=== PATIENT | female | born 1980 | race Caucasian/White ===

== ENCOUNTER 2016-09-28 04:17 | Inpatient (IN) | payer OTHER ==
[~2016-09-28] VITALS: Ht 157.5 cm; Wt 114.3 kg
[2016-09-28] VITALS (7 sets, daily range): BP systolic 127–154; BP diastolic 77–101
[~2016-09-28 04:17] MED LIST: ACET1TAB PO; ASCO500V4 IJ; CYCL-331 PO; DICL1PAT14 TD; DIPH25CA58 PO; FERR-26 PO; GABA-586 PO; LORA0.5T PO; MAGN400T3 PO; METO10TA81 PO; MULT1TAB52 PO; NAPR500T3 PO; PROM25TA10 PO; PROP10TA PO; PROP40TA PO; PROP60CA8 PO; TRAM50TA PO
--- NOTE | 2016-09-28 04:24 | PHYS DOC ---
Past History Past Medical History: Migraines, Seizure, Other Past Surgical History: Hysterectomy, Other Alcohol Use: None Drug Use: None Adult General Chief Complaint Chief Complaint: NAUSEA/VOMITING/DIARRHEA HPI HPI Patient is a 36 year old F who presents with nausea and vomiting 3 days. Patient called and wants us morning because her symptoms have progressed over the past 3 days and she is unable to keep anything down. Patient states she's a stream discomfort. Patient describes some generalized abdominal tenderness. Patient did have subjective fevers. Patient denies any chest pain returns of breath. Patient denies any dysuria. Patient has no other complaints. Review of Systems Review of Systems GEN: Denies fevers, chills, sweats HEENT: Denies blurred vision, sore throat CV: Denies chest pain RESP: Denies shortness of air, cough GI: Abdominal pain with nausea and vomiting NEURO: Denies confusion, dizziness MSK: Denies weakness, joint pain/swelling Allergies Allergies Allergies Coded Allergies Type Severity Reaction Last Updated Verified hydrocodone Allergy Unknown 01/23/15 Yes ibuprofen Allergy Unknown 01/23/15 Yes iron Allergy Unknown 06/08/15 Yes latex Allergy Unknown 01/23/15 Yes Physical Exam Physical Exam GEN.: Moderate distress. Alert and oriented. HEENT: Head is normocephalic, atraumatic NECK: Supple. LUNGS: CTAB. HEART: RRR, S1, S2 present. Peripheral pulses intact ABDOMEN: Soft, mild generalized abdominal tenderness, nondistended, no focal point tenderness, no rebound no guarding. Positive bowel sounds. EXTREMITIES: Without any cyanosis. NEUROLOGIC: Normal speech, normal tone PSYCHIATRIC: Normal affect, normal mood. SKIN: No ulcerations Current Patient Data Vital Signs Vital Signs Date Time Temp Pulse Resp B/P (MAP) Pulse Ox O2 Delivery O2 Flow Rate FiO2 09/28/16 04:17 97.6 117 20 97 Room Air Lab Results Laboratory Tests Test 09/28/16 04:36 09/28/16 05:00 09/28/16 06:01 Glucose (Fingerstick) 132 mg/dL White Blood Count 14.1 x10^3/uL Red Blood Count 4.93 x10^6/uL Hemoglobin 13.8 g/dL Hematocrit 40.6 % Mean Corpuscular Volume 82 fL Mean Corpuscular Hemoglobin 28 pg Mean Corpuscular Hemoglobin Concent 34 g/dL Red Cell Distribution Width 14.3 % Platelet Count 315 x10^3/uL Neutrophils (%) (Auto) 72 % Lymphocytes (%) (Auto) 21 % Monocytes (%) (Auto) 5 % Eosinophils (%) (Auto) 1 % Basophils (%) (Auto) 1 % Neutrophils # (Auto) 10.1 x10^3uL Lymphocytes # (Auto) 2.9 x10^3/uL Monocytes # (Auto) 0.8 x10^3/uL Eosinophils # (Auto) 0.1 x10^3/uL Basophils # (Auto) 0.1 x10^3/uL Segmented Neutrophils % 63 % Lymphocytes % 34 % Monocytes % 2 % Basophils % 1 % Platelet Estimate Adequate Platelet Clumps, EDTA Present Large Platelets Occ Giant Platelets Occ Anisocytosis Slight Ovalocytes Occ Stomatocytes Occ Sodium Level 140 mmol/L Potassium Level 3.5 mmol/L Chloride Level 104 mmol/L Carbon Dioxide Level 22 mmol/L Anion Gap 14 Blood Urea Nitrogen 10 mg/dL Creatinine 0.9 mg/dL Estimated GFR (Cockcroft-Gault) 70.8 BUN/Creatinine Ratio 11 Glucose Level 127 mg/dL Calcium Level 9.9 mg/dL Total Bilirubin 0.4 mg/dL Aspartate Amino Transf (AST/SGOT) 20 U/L Alanine Aminotransferase (ALT/SGPT) 22 U/L Alkaline Phosphatase 118 U/L Total Protein 8.5 g/dL Albumin 3.9 g/dL Albumin/Globulin Ratio 0.8 Lipase 106 U/L Urine Collection Type Unknown Urine Color Yellow Urine Clarity Hazy Urine pH >8.5 Urine Specific [place] 1.010 Urine Protein Trace Urine Glucose (UA) Neg mg/dL Urine Ketones (Stick) 15 mg/dL Urine Blood Neg Urine Nitrite Neg Urine Bilirubin Neg Urine Urobilinogen Dipstick 1 mg/dL Urine Leukocyte Esterase Small Urine RBC 0 /HPF Urine WBC Occ /HPF Urine Squamous Epithelial Cells Few /LPF Urine Bacteria Few /HPF Urine Mucus Slight /LPF Current Medications Medications (Trade) Dose Ordered Sig/Leanna Route PRN Reason Start Time Stop Time Status Last Admin Dose Admin Metoclopramide HCl (Reglan) 10 mg 1X ONCE IV 09/28/16 05:00 09/28/16 05:01 DC 09/28/16 05:00 Sodium Chloride 1,000 ml @ 1,000 mls/hr 1X ONCE IV 09/28/16 05:00 09/28/16 05:59 DC 09/28/16 05:00 Iohexol (Omnipaque 300 Mg/ml) 75 ml 1X ONCE IV 09/28/16 05:00 09/28/16 05:01 DC 09/28/16 05:35 Info (Do NOT chart on this entry -- for MONITORING) 1 each PRN DAILY PRN MC SEE COMMENTS 09/28/16 05:00 09/30/16 04:59 Promethazine HCl (Phenergan Im) 25 mg 1X ONCE IM 09/28/16 07:00 09/28/16 07:02 DC 09/28/16 06:53 EKG EKG Not performed [] Radiology/Procedures Radiology/[place] [address] IMAGING REPORT Signed PATIENT: SHITAL WASHBURN ACCOUNT: [id number] : 1980 LOCATION: ER AGE: 36 SEX: F EXAM STATUS: REG ER ORD. PHYSICIAN: RADHA GARCIA DO REASON: nausea and vomiting with abdominal pain PROCEDURE: CT ABD PELV W/ IV CONTRST ONLY INDICATION: [id number] Omni 300 75cc: Dizzy, fever, weakness, abdomen tenderness x 3 days. Hx: Right knee surgery 3 weeks ago. COMPARISON: None. TECHNIQUE: Axial CT images were obtained through the abdomen and pelvis with intravenous contrast. One or more of the following individualized dose reduction techniques were utilized for this examination: 1. Automated exposure control; 2. Adjustment of the mA and/or kV according to patient size; 3. Use of iterative reconstruction technique. FINDINGS: Abdomen: Chest Base: Partially imaged without gross abnormality. Vessels: No abdominal aortic aneurysm. Liver/Biliary: No intrahepatic biliary duct dilation. Pancreas: No peripancreatic edema. Spleen: Normal. Kidneys/Adrenal: No hydronephrosis. GI: Moderate fat-containing umbilical hernia. No dilated loops of bowel to suggest obstruction. Appendix not well seen. Pelvis: Bladder: No definite adjacent inflammation. Degenerative changes of spine. IMPRESSION: 1. Patient motion limits this examination and obscures some regions but no evidence of hydronephrosis or bowel obstruction. Electronically signed by: Aidan Odonnell MD (09/28/2016 6:06 AM) [email or web address] DICTATED AND SIGNED BY: AIDAN ODONNELL MD DATE: 09/28/16 0559 CC: SYEDA RODAS; RADHA GARCIA DO ~ [] Course & Med Decision Making Course & Med Decision Making Pertinent Labs and Imaging studies reviewed. (See chart for details) ED course: Patient was seen and examined emergency room CBC, CMP, lipase, UA, CT scan abdomen and pelvis were ordered 0600: Care has been transitioned to Dr. Daly who will follow-up on [labs], [ radiology], and final disposition of the patient. I took over care of patient at 0600. I followed up with the patient's CT imaging which was negative for acute pathology. The patient had been treated with Reglan by Dr. Garcia which patient states not help with her nausea symptoms. Patient was treated with Phenergan IM, however patient states that she continues to be nauseous. Patient attempted by mouth intake with oral fluids , and after drinking a few ounces, the patient states that she is unable to drink anymore and is feeling worsening nausea at this time. The patient's symptoms are likely due to viral gastroenteritis, and due to lack of by mouth intake and dizziness, the patient will need admission to the hospital for continued IV hydration and symptomatic control. I spoke with Dr. Navarro who accepted care patient in hospital. [] Dragon Disclaimer Dragon Disclaimer This chart was dictated in whole or in part using Voice Recognition software in a busy, high-work load, and often noisy Emergency Department environment. It may contain unintended and wholly unrecognized errors or omissions. Departure Departure: Impression: Primary Impression: Nausea and vomiting Disposition: ADMITTED INPATIENT Admitting Physician: Trish Navarro Condition: STABLE Referrals: SYEDA RODAS (PCP) Problem Qualifiers Primary Impression: Nausea and vomiting Vomiting type: unspecified Vomiting Intractability: intractable Qualified Codes: R11.2 - Nausea with vomiting, unspecified RADHA GARCIA DO Sep 28, 2016 04:24 WENDY DALY MD Sep 28, 2016 08:06
[2016-09-28] MEDS ORDERED: CONTRAST GIVEN MC PRN (05:00)
[2016-09-28] MEDS ORDERED: IV NORMAL SALINE 1,000ML 1,000 ML IV ONE (05:00)
[2016-09-28] MEDS ORDERED: IOHEXOL 300 MG/ML 75 ML VIAL. IV ONE (05:00)
[2016-09-28] MEDS ORDERED: METOCLOPRAMIDE HCL 10 MG/2 ML VIAL. IV ONE (05:00)
[2016-09-28 05:37] LABS: ALBUMIN 3.9 g/dL (3.4-5.0); ALBUMIN/GLOBULIN RATIO 0.8 (1.0-1.7); BASO # 0.1 x10^3/uL (0.0-0.2); BASO % 1 % (0-3); CALCIUM 9.9 mg/dL (8.5-10.1); CREATININE 0.9 mg/dL (0.6-1.0); EOS # 0.1 x10^3/uL (0.0-0.7); EOS % 1 % (0-3); GFR 70.8; HEMATOCRIT 40.6 % (36.0-47.0); HEMOGLOBIN 13.8 g/dL (12.0-15.5); LYMPH # 2.9 x10^3/uL (1.0-4.8); LYMPH % 21 % (24-48); MEAN CORPUSCULAR HEMOGLOBIN 28 pg (25-35); MEAN CORPUSCULAR HGB CONC 34 g/dL (31-37); MEAN CORPUSCULAR VOLUME 82 fL (79-100); MONO # 0.8 x10^3/uL (0.0-1.1); MONO % 5 % (0-9); NEUT # 10.1 x10^3uL (1.8-7.7); NEUT % 72 % (31-73); PLATELET COUNT 315 x10^3/uL (140-400); POTASSIUM 3.5 mmol/L (3.5-5.1); RED BLOOD COUNT 4.93 x10^6/uL (3.50-5.40); RED CELL DISTRIBUTION WIDTH 14.3 % (11.5-14.5); TOTAL BILIRUBIN 0.4 mg/dL (0.2-1.0); TOTAL PROTEIN 8.5 g/dL (6.4-8.2); WHITE BLOOD COUNT 14.1 x10^3/uL (4.0-11.0)
--- NOTE | 2016-09-28 06:10 | RAD ---
INDICATION: [id number] Omni 300 75cc: Dizzy, fever, weakness, abdomen tenderness x 3 days. Hx: Right knee surgery 3 weeks ago. COMPARISON: None. TECHNIQUE: Axial CT images were obtained through the abdomen and pelvis with intravenous contrast. One or more of the following individualized dose reduction techniques were utilized for this examination: 1. Automated exposure control; 2. Adjustment of the mA and/or kV according to patient size; 3. Use of iterative reconstruction technique. FINDINGS: Abdomen: Chest Base: Partially imaged without gross abnormality. Vessels: No abdominal aortic aneurysm. Liver/Biliary: No intrahepatic biliary duct dilation. Pancreas: No peripancreatic edema. Spleen: Normal. Kidneys/Adrenal: No hydronephrosis. GI: Moderate fat-containing umbilical hernia. No dilated loops of bowel to suggest obstruction. Appendix not well seen. Pelvis: Bladder: No definite adjacent inflammation. Degenerative changes of spine. IMPRESSION: 1. Patient motion limits this examination and obscures some regions but no evidence of hydronephrosis or bowel obstruction. Electronically signed by: Paul Wang MD (09/28/2016 6:06 AM) [facility]
[2016-09-28 06:31] LABS: BACTERIA,URINE FEW /HPF (0-FEW); BILIRUBIN,URINE NEG (NEG); CLARITY,URINE HAZY; COLOR,URINE YELLOW; GLUCOSE,URINE NEG (NEG); NITRITE,URINE NEG (NEG); RBC,URINE 0 /HPF (0-2); SQUAMOUS EPITHELIAL CELL,UR FEW /LPF; UROBILINOGEN,URINE 1 mg/dL (0.2 mg/dL); WBC,URINE OCC /HPF (0-4)
[2016-09-28 06:43] LABS: % BASOS 1 % (0-3); % LYMPHS 34 % (24-48); % MONOS 2 % (0-10); % SEGS 63 % (35-66); PLT ESTIMATE ADEQUATE (ADEQUATE)
[2016-09-28 06:44] LABS: PLATELET CLUMP PRESENT
[2016-09-28 06:45] LABS: ANISOCYTOSIS SLIGHT; OVALOCYTES OCC
[2016-09-28 06:46] LABS: STOMATOCYTES OCC
[2016-09-28] MEDS ORDERED: PROMETHAZINE IM 25 MG/ML VIAL IM ONE (07:00)
[2016-09-28] MEDS ORDERED: LABETALOL 20 MG/4 ML DISP.SYRIN. IVP PRN (08:30)
[2016-09-28] MEDS: ONDANSETRON PF 4 MG/2 ML VIAL. IV PRN ×3 (08:58→19:48)
[2016-09-28] MEDS: IV NORMAL SALINE 1,000ML 1,000 ML IV SCH ×3 (08:59→22:23)
[2016-09-28] MEDS ORDERED: SERT50TA PO (11:07)
[2016-09-28] MEDS ORDERED: OXYC20TA34 PO (11:07)
[2016-09-28] MEDS ORDERED: CYPR4TAB37 PO (11:07)
[2016-09-28] MEDS ORDERED: RIVA10TA PO (11:07)
[2016-09-28] MEDS ORDERED: RANI150T6 PO (11:07)
[2016-09-28] MEDS ORDERED: LORA0.5T PO (11:07)
[2016-09-28] MEDS ORDERED: ONDA8TAB12 PO (11:07)
[2016-09-28] MEDS ORDERED: PRAZ1CAP2 PO (11:07)
[2016-09-28] MEDS: fentaNYL PF 100 MCG/2 ML VIAL IV PRN ×4 (11:52→22:21)
[2016-09-28] MEDS: ENOXAPARIN 40 MG/0.4 ML DISP.SYRIN. SQ SCH (13:28)
--- NOTE | 2016-09-28 13:55 | HP ---
ADMIT DATE: 09/28/2016 HISTORY OF PRESENT ILLNESS: The patient is a 36-year-old female patient who presented to the Emergency Room with a complaint of nausea, vomiting for the last 2-3 days. She stated that she has been unable to keep anything by mouth. She has also had diarrhea that started over the last 24 hours and has had about 6 bowel movements. Did state that she has fever and also felt dizzy and lightheaded, although denied any abdominal pain. She was evaluated in the Emergency Room extensively and her lab work showed that her urine was unremarkable. Her chemistry was also unremarkable. She does have leukocytosis and was admitted with diagnosis of acute gastroenteritis. She was started on IV fluid, pain medication and IV antiemetic. PAST MEDICAL HISTORY: Significant for fibromyalgia, scoliosis, pseudoseizures, chronic nausea, right leg fracture, osteoarthritis, migraine headache, hypertension, seizure disorder as well as insomnia. PAST SURGICAL HISTORY: Significant for diagnostic laparoscopy for endometriosis, hysterectomy, right knee arthroscopic surgery, right ankle surgery and recently reconstructive right knee surgery. ALLERGIES: She is allergic to hydrocodone, ibuprofen, iron, latex, and most of nonsteroidal anti-inflammatory medication. Apparently, she has had surgery by ____ about 3 weeks ago. She is currently on Excedrin tension headache 1 tablet as needed daily, ascorbic acid 500 mg twice a day, cyclobenzaprine or Flexeril 10 mg every 4 hours as needed, cyproheptadine 4 mg twice a day, diclofenac epolamine or Flector 1 patch applied topically. She is on diphenhydramine 25 mg daily, ferrous sulfate 325 mg 3 times a day, gabapentin 300 mg 3 times a day, lorazepam 0.5 mg twice a day, magnesium oxide 400 mg daily, metoclopramide 10 mg daily, multivitamin 1 tablet once a day, ondansetron 8 mg every 8 hours, oxycodone extended release or OxyContin 20 mg twice a day, prazosin 1 mg at bedtime, promethazine 25 mg ____ times a day before meals, promethazine 25 mg daily as needed, propranolol 40 mg twice a day, ranitidine 150 mg once a day, rivaroxaban 10 mg once a day. Sertraline 50 mg, she takes [id number] tablet at bedtime; and tramadol 50 mg twice a day as needed. FAMILY HISTORY: She has 2 brothers, both of them are younger and both have insomnia. Her father is alive at age of 64 and mother is alive at age of 64. Apparently, both of them have mental disorders and apparently, she does not keep in touch with him. SOCIAL HISTORY: She is , has son and daughter. She never smokes. She does not drink alcohol or use any recreational drugs. 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 REVIEW OF SYSTEMS: The patient denied any blurring of vision, cataract, glaucoma or macular degeneration. Denied any headache, tinnitus, or sensorineural deafness. Denied any nosebleeds, stuffy nose, or postnasal drip. Denied any sore throat, sore tongue, toothache, hoarseness of voice or difficulty swallowing. She does complain obviously of nausea, vomiting, as well as diarrhea. Denied any hematemesis, melena or hematochezia. Denied any dysuria, frequency, or hematuria. Denied any chest pain, shortness of breath, orthopnea, or paroxysmal nocturnal dyspnea. Did complain of dizziness, lightheadedness. PHYSICAL EXAMINATION: GENERAL: On arrival to the Emergency Room, she was resting slightly propped up in bed, in no apparent distress. No pallor, jaundice, cyanosis, or thyromegaly. No jugular venous distension. No lower limb edema. VITAL SIGNS: Her heart rate was 118, blood pressure 147/73, temperature was 97.6, respiratory rate was 18, and oxygen saturation was 96%. HEAD: Examination of the head, eyes, ear, nose, and throat showed normocephalic, atraumatic. NECK: Supple. HEART: Showed normal first and second heart sounds. No gallop, rub, or murmur. CHEST: Clear to auscultation. No crepitation or rhonchi. ABDOMEN: Distended, soft, nontender. NEUROLOGIC: She is awake, alert, responding appropriately. Cranial nerves intact. EXTREMITIES: She moves extremities without difficulty. SKIN: She has multiple ____ surgical incisions on the right knee anteriorly; however, there is no redness, tenderness, or discharge. LABORATORY DATA: Showed a white cell count 14,100, hemoglobin 13.8, hematocrit 40.6, MCV 82, and platelet count 315,000. Her chemistry showed a serum sodium 140, potassium 3.5, chloride 104, bicarbonate 22, anion gap of 14, BUN 10, creatinine 0.9, estimated GFR was 71 mL per minute. Her glucose was 127, calcium was 9.9. Total bilirubin, AST, ALT were normal. Alkaline phosphatase slightly elevated. Total protein was 8.5. Albumin was 3.9. Lipase 106. She has had a CT scan of the abdomen and pelvis with intravenous contrast and showed that the chest base was partially imaged without gross abnormality. No evidence of intraabdominal aortic aneurysm. The liver and biliary tree were normal. Pancreas also normal. Spleen was normal in size. Kidneys showed no hydronephrosis. There is moderate fat containing umbilical hernia and no dilated loops bowel to suggest obstruction. Appendix not well seen. ASSESSMENT AND PLAN: The patient was admitted with acute gastroenteritis. She was started on IV fluid, antiemetics, and IV fentanyl as she is unable to keep any of her medication by mouth. We will continue with labetalol for now to control her blood pressure and once her nausea, vomiting subside we will introduce all her medication given orally. I will repeat all her labs tomorrow. FABIAN CRAIG MD DR: BETITO/alejandra JOB#: [id number] / [id number]
[2016-09-28] MEDS: PROMETHAZINE 25 MG in IV NORMAL SALINE 50ML 50 ML IV PRN ×2 (16:32→22:20)
[2016-09-29] MEDS: ONDANSETRON PF 4 MG/2 ML VIAL. IV PRN ×2 (00:25→07:24)
--- NOTE | 2016-09-29 02:32 | ACF ---
Admission Criteria Forms VOMITING Clinical Indications for Admission to Inpatient Care ( Place 'X' for any and all applicable criteria): Admission is indicated for 1 or more of the following(1)(2)(3): [ ]I. Complete or partial gastrointestinal obstruction [ ]II. Vomiting due to significant metabolic derangement (eg, severe hypercalcemia, diabetic ketoacidosis) [ ]III. Other cause of vomiting requiring hospitalization (eg, poisoning, increased intracranial pressure) [X ]IV. Inpatient admission required rather than observation care because of 1 or more of the following [ ]i) Hemodynamic instability [X ]ii) Vomiting that is severe or persistent indicated by 1 or more of the following [X] 1) Numerous episodes of vomiting in past 24hours (eg , every 1 to 2 hours) 2) Suggests severe underlying cause or complication (eg , projectile, feculent, bilious, coffee ground, bloody) [X] 3) Appropriate antiemetic treatment (eg, repeated oral or parenteral dosing) does not sufficiently reduce vomiting within 12 to 24 hours of treatment 4) Treatment regimen necessary to adequately control vomiting requires inpatient level of care (eg, not immediately available in outpatient setting) [ ]iii) Severe electrolyte abnormalities requiring inpatient care [ ]iv) Severe pain requiring acute inpatient management( Continuous or frequent (eg, every 2 to 4 hours) parental analgesics or analgesic regimen that can only be performed or initiated in inpatient setting) [ ]v) High fever or infection requiring inpatient admission as indicated by 1 or more of the following(7)(8): [ ]1) Appropriate outpatient or observation care antimicrobial treatment unavailable, not effective, or not feasible [ ]2) Documented bacteremia [ ]3) Temp >104.9 degrees F (40.5 degrees C) (oral) [ ]4) Temp >103.1 degrees F (39.5 C) (oral) or <96.8 degrees F (36 C) (rectal) that does not respond to all emergency treatment measures [ ]vi) Acute renal failure [ ]vii) IV fluid required rather than oral rehydration to replace significant on going losses (greater than 3 L/m2 per day) [ ]viii) Parenteral nutrition regimen that must be implemented on inpatient basis [ ]ix) Other condition, treatment or monitoring requiring inpatient admission Extended stay beyond goal length of stay may be needed for(1)(4): [ ]a) Severe vomiting [ ]b) Persistent vomiting, vital sign changes, severe electrolyte imbalance , or diagnosed cause of vomiting that requires continued hospitalization (eg, gastrointestinal obstruction , increased intracranial pressure) [ ]c) Surgery to treat identified causes of vomiting (eg, bowel obstruction , intracranial process) [ ]d) Comorbid illness that requires inpatient care (eg, acute heart failure , renal failure) [ ]e) Need for inpatient endoscopy The original [employer] content created by [employer] has been revised. The portions of the content which have been revised are identified through the use of italic text or in bold, and [facility] has neither reviewed nor approved the modified material. All other unmodified content is copyright [facility]. Please see references footnoted in the original [facility] edition 2016 Admission Criteria Met?: Yes FRANK PULIDO Sep 29, 2016 02:32
[2016-09-29] MEDS: fentaNYL PF 100 MCG/2 ML VIAL IV PRN ×4 (02:43→19:27)
[2016-09-29] MEDS ORDERED: PROMETHAZINE 25 MG/ML VIAL IV ONE (04:35)
[2016-09-29] MEDS ORDERED: IV NORMAL SALINE 50ML 50 ML ONE (04:35)
[2016-09-29] MEDS: PROMETHAZINE 25 MG in IV NORMAL SALINE 50ML 50 ML IV PRN ×2 (04:39→12:36)
[2016-09-29 05:20] VITALS: BP 115/81
[2016-09-29 07:30] LABS: BASO % 1 % (0-3); EOS # 0.1 x10^3/uL (0.0-0.7); EOS % 1 % (0-3); HEMATOCRIT 34.3 % (36.0-47.0); HEMOGLOBIN 11.5 g/dL (12.0-15.5); LYMPH # 2.3 x10^3/uL (1.0-4.8); LYMPH % 29 % (24-48); MEAN CORPUSCULAR HEMOGLOBIN 28 pg (25-35); MEAN CORPUSCULAR HGB CONC 34 g/dL (31-37); MEAN CORPUSCULAR VOLUME 83 fL (79-100); MONO # 0.5 x10^3/uL (0.0-1.1); MONO % 6 % (0-9); NEUT # 5.1 x10^3uL (1.8-7.7); NEUT % 64 % (31-73); PLATELET COUNT 228 x10^3/uL (140-400); RED BLOOD COUNT 4.13 x10^6/uL (3.50-5.40); RED CELL DISTRIBUTION WIDTH 14.3 % (11.5-14.5)
[2016-09-29 08:39] LABS: ALBUMIN 3.4 g/dL (3.4-5.0); ALBUMIN/GLOBULIN RATIO 0.9 (1.0-1.7); CALCIUM 8.6 mg/dL (8.5-10.1); CREATININE 0.8 mg/dL (0.6-1.0); GFR 81.2; POTASSIUM 3.2 mmol/L (3.5-5.1); TOTAL BILIRUBIN 0.4 mg/dL (0.2-1.0); TOTAL PROTEIN 7.2 g/dL (6.4-8.2)
[2016-09-29] MEDS ORDERED: METOCLOPRAMIDE HCL 10 MG/2 ML VIAL. IV ONE (09:30)
[2016-09-29] MEDS ORDERED: PYRIDOXINE 100 MG/ML VIAL. IV ONE (09:30)
[2016-09-29] MEDS: FAMOTIDINE 20 MG/2 ML VIAL IVP SCH ×2 (09:33→19:26)
[2016-09-29] MEDS: METOCLOPRAMIDE HCL 10 MG/2 ML VIAL. IV SCH ×4 (09:57→19:26)
[2016-09-29 10:00] VITALS: BP 138/92
[2016-09-29] MEDS ORDERED: diphenhydrAMINE 50 MG/ML VIAL IVP ONE (10:00)
[2016-09-29] MEDS ORDERED: MVI, ADULT NO.4 WITH VIT K 10 ML, FOLIC ACID 1 MG, THIAMINE 100 MG, POTASSIUM CHLORIDE ... IV ONE ×5 (10:00)
[2016-09-29] MEDS ORDERED: KETOROLAC 30 MG/ML VIAL. IV ONE (13:10)
[2016-09-29] MEDS ORDERED: DICYCLOMINE 20 MG/2 ML AMPUL. IM ONE (13:10)
[2016-09-29] MEDS: ENOXAPARIN 40 MG/0.4 ML DISP.SYRIN. SQ SCH (13:20)
[2016-09-29 15:12] VITALS: BP 138/92
[2016-09-29 19:27] VITALS: BP 137/95
[2016-09-29] MEDS: KETOROLAC 30 MG/ML VIAL. IV PRN (22:36)
[2016-09-29] MEDS: diphenhydrAMINE 50 MG/ML VIAL IVP PRN (22:37)
[2016-09-29 23:00] VITALS: BP 134/78
--- NOTE | 2016-09-30 00:51 | PN ---
DATE: 09/29/2016 SUBJECTIVE: This is a 36-year-old female who was admitted with the following problems: 1. Acute gastroenteritis. 2. Persistent nausea and vomiting. 3. Diarrhea or loose stools. 4. Elevated blood pressure. 5. Pain management and status post right knee surgery. 6. Hypokalemia. She has not been able to keep anything down. When I was seeing her, she was having a kind of dry heaves and very nauseated. They did attempt to give her some ice chips last night, but was unsuccessful. I am assuming her care from Dr. Navarro. OBJECTIVE: VITAL SIGNS: Blood pressure 115/81, pulse 103, respiratory 18, temperature 98.5, pulse ox 99% on room air. GENERAL: Color is pale. HEENT: Her tongue is relatively moist. LUNGS: Clear. CARDIOVASCULAR: Regular rhythm and rate, mildly tachycardic. ABDOMEN: Soft, little tender in the midepigastric area. EXTREMITIES: Without edema. She does have a swollen right knee from previous surgery. LABORATORY DATA: White count has come down to normal at 8.0, hemoglobin 11.5, hematocrit 34.3. Chemistry, potassium is 3.2, magnesium is 1.8. PLAN: So, the plan is to continue IV fluids, try some different antiemetics, add in some Pepcid and try clear liquids for lunch. ZURI MEDINA DO DR: NADEGE/alejandra JOB#: [id number] / [id number]
[2016-09-30] MEDS ORDERED: IV NORMAL SALINE 100ML 100 ML ONE (01:40)
[2016-09-30] MEDS: PROMETHAZINE 25 MG in IV NORMAL SALINE 50ML 50 ML IV PRN (01:42)
[2016-09-30] MEDS: diphenhydrAMINE 50 MG/ML VIAL IVP PRN ×2 (04:33→10:18)
[2016-09-30] MEDS: KETOROLAC 30 MG/ML VIAL. IV PRN ×2 (04:33→10:18)
[2016-09-30 05:04] VITALS: BP 146/91
[2016-09-30 07:50] LABS: BASO # 0.1 x10^3/uL (0.0-0.2); BASO % 1 % (0-3); EOS # 0.1 x10^3/uL (0.0-0.7); EOS % 1 % (0-3); HEMATOCRIT 33.6 % (36.0-47.0); HEMOGLOBIN 11.4 g/dL (12.0-15.5); LYMPH # 2.3 x10^3/uL (1.0-4.8); LYMPH % 30 % (24-48); MEAN CORPUSCULAR HEMOGLOBIN 28 pg (25-35); MEAN CORPUSCULAR HGB CONC 34 g/dL (31-37); MEAN CORPUSCULAR VOLUME 83 fL (79-100); MONO # 0.6 x10^3/uL (0.0-1.1); MONO % 7 % (0-9); NEUT # 4.6 x10^3uL (1.8-7.7); NEUT % 61 % (31-73); PLATELET COUNT 208 x10^3/uL (140-400); RED BLOOD COUNT 4.05 x10^6/uL (3.50-5.40); RED CELL DISTRIBUTION WIDTH 14.1 % (11.5-14.5); WHITE BLOOD COUNT 7.7 x10^3/uL (4.0-11.0)
[2016-09-30 07:57] LABS: CREATININE 0.8 mg/dL (0.6-1.0); GFR 81.2; POTASSIUM 3.1 mmol/L (3.5-5.1)
[2016-09-30] MEDS: FAMOTIDINE 20 MG/2 ML VIAL IVP SCH ×2 (08:17→20:13)
[2016-09-30] MEDS: METOCLOPRAMIDE HCL 10 MG/2 ML VIAL. IV SCH (08:17)
[2016-09-30] MEDS ORDERED: POTASSIUM CHLORIDE 10 MEQ TABLET.ER. PO ONE (10:20)
[2016-09-30 10:52] VITALS: BP 161/92
[2016-09-30] MEDS ORDERED: PROMETHAZINE 25 MG TABLET. PO PRN (12:45)
[2016-09-30] MEDS ORDERED: diphenhydrAMINE HCL 25 MG CAPSULE PO PRN (12:45)
[2016-09-30] MEDS ORDERED: ONDANSETRON ODT 4 MG TAB.RAPDIS PO PRN (13:00)
[2016-09-30] MEDS ORDERED: ASA/APAP/CAFFEINE 250/250/65MG TABLET. PO PRN (13:15)
[2016-09-30] MEDS: GABAPENTIN 300 MG CAPSULE. PO SCH ×2 (13:35→20:15)
[2016-09-30] MEDS: oxyCODONE ER 20 MG TAB.ER.12H PO SCH ×2 (13:35→20:16)
[2016-09-30] MEDS: ENOXAPARIN 40 MG/0.4 ML DISP.SYRIN. SQ SCH (13:35)
[2016-09-30] MEDS: PROPRANOLOL 20 MG TABLET. PO SCH ×2 (13:35→20:15)
[2016-09-30] MEDS: METOCLOPRAMIDE 10 MG TABLET PO SCH ×3 (13:35→20:15)
[2016-09-30] MEDS: PROMETHAZINE 25 MG TABLET. PO SCH (17:09)
[2016-09-30 19:14] VITALS: BP 116/78
[2016-09-30] MEDS: LORazepam 0.5 MG TABLET PO SCH (20:15)
[2016-09-30] MEDS: CYPROHEPTADINE 4 MG TABLET. PO SCH (20:16)
[2016-09-30] MEDS ORDERED: PRAZOSIN 1 MG CAPSULE. PO SCH (21:00)
[2016-09-30] MEDS ORDERED: DICLOFENAC EPOLAMINE 1.3% PATCH 5PATCH PACKET. TD SCH (21:00)
[2016-09-30] MEDS ORDERED: FAMOTIDINE 20 MG TABLET PO PRN (21:00)
[2016-09-30] MEDS ORDERED: SERTRALINE 50 MG TABLET. PO SCH (21:00)
[2016-09-30 22:01] VITALS: BP 120/83
[2016-10-01 00:07] VITALS: BP 117/55
--- NOTE | 2016-10-01 00:24 | PN ---
DATE: PROBLEMS: 1. Acute gastroenteritis. 2. Persistent nausea with dry heaves. 3. Loose stools, improving. 4. Elevated blood pressure. 5. Pain management. 6. Hypokalemia. SUBJECTIVE: Doing better today, is able to take sips for water, try some clear liquids and some crackers, got up, change her clothes, had a bed bath. States feels "more human today." Still requiring quite a bit of medication, but we are switching to p.o. today. OBJECTIVE: VITAL SIGNS: Blood pressure this morning is 146/91, pulse 77, respirations 18, temperature 98.4, pulse ox 98% on room air. GENERAL: Color much improved. HEENT: Tongue now moist. NECK: Supple. LUNGS: Clear. CARDIOVASCULAR: Regular rhythm and rate. ABDOMEN: Soft. No tenderness to palpation. EXTREMITIES: Without edema. Urine culture is negative. PLAN: Decrease IV fluids. Switched to p.o. medications. Plan for discharge tomorrow hopefully and try a soft diet for dinner. ZURI MEDINA DO DR: NADEGE/alejandra JOB#: [id number] / [id number]
[2016-10-01] MEDS: KETOROLAC 30 MG/ML VIAL. IV PRN (02:01)
[2016-10-01 05:21] VITALS: BP 137/85
[2016-10-01 06:43] LABS: BASO % 1 % (0-3); EOS # 0.3 x10^3/uL (0.0-0.7); EOS % 4 % (0-3); HEMATOCRIT 32.4 % (36.0-47.0); HEMOGLOBIN 10.8 g/dL (12.0-15.5); LYMPH # 2.1 x10^3/uL (1.0-4.8); LYMPH % 31 % (24-48); MEAN CORPUSCULAR HEMOGLOBIN 28 pg (25-35); MEAN CORPUSCULAR HGB CONC 33 g/dL (31-37); MEAN CORPUSCULAR VOLUME 84 fL (79-100); MONO # 0.5 x10^3/uL (0.0-1.1); MONO % 8 % (0-9); NEUT # 3.9 x10^3uL (1.8-7.7); NEUT % 57 % (31-73); PLATELET COUNT 169 x10^3/uL (140-400); RED BLOOD COUNT 3.88 x10^6/uL (3.50-5.40); RED CELL DISTRIBUTION WIDTH 14.4 % (11.5-14.5); WHITE BLOOD COUNT 6.9 x10^3/uL (4.0-11.0)
[2016-10-01 07:26] LABS: ALBUMIN 3.3 g/dL (3.4-5.0); ALBUMIN/GLOBULIN RATIO 0.9 (1.0-1.7); CALCIUM 8.6 mg/dL (8.5-10.1); CREATININE 0.9 mg/dL (0.6-1.0); GFR 70.8; MAGNESIUM 1.9 mg/dL (1.8-2.4); POTASSIUM 3.5 mmol/L (3.5-5.1); TOTAL BILIRUBIN 0.4 mg/dL (0.2-1.0); TOTAL PROTEIN 6.9 g/dL (6.4-8.2)
[2016-10-01] MEDS ORDERED: RIVAROXABAN 10 MG TABLET. PO SCH (09:00)
--- NOTE | 2016-10-01 10:13 | RAD ---
Double contrast upper GI study to include a small bowel follow-through study 10/01/2016 Clinical history: Abdominal pain for the last week with nausea. Technique: A double contrast upper GI study was performed under fluoroscopic control. This was continued as a small bowel follow-through study which was performed under radiographic and intermittent fluoroscopic control. The total fluoroscopic time for both studies was 2.5 minutes. 10 digital spot radiographs were obtained. Findings: Comparison is made to the patient's CT scan of the abdomen and pelvis dated 09/28/2016. An AP digital radiograph of the abdomen was obtained for a air bag builder radiograph. This demonstrates a nonobstructive bowel gas pattern. No radiopaque calculus is seen. Mild to moderate S-shaped curvature of the thoracolumbar spine is noted. The mucosal pattern of the esophagus, stomach and duodenum is within normal limits. Esophageal motility is within normal limits. There is a very small sliding hiatal hernia. Mild gastroesophageal reflux to the mid/lower thoracic esophagus is noted. The mucosal pattern of the duodenum, jejunum, ileum and terminal ileum is within normal limits. The small bowel transit time is within normal limits. The cecum is in its normal location within the right lower quadrant of the abdomen. No extrinsic mass effect upon the small bowel is seen. Impression: 1. Very small sliding hiatal hernia. Mild gastroesophageal reflux. 2. Otherwise negative study.
[2016-10-01 10:22] VITALS: BP 136/88
[2016-10-01] MEDS: FAMOTIDINE 20 MG/2 ML VIAL IVP SCH (10:22)
[2016-10-01] MEDS: PROMETHAZINE 25 MG TABLET. PO SCH ×2 (10:22→11:30)
[2016-10-01] MEDS: LORazepam 0.5 MG TABLET PO SCH (10:22)
[2016-10-01 10:24] VITALS: BP 136/88
[2016-10-01] MEDS: GABAPENTIN 300 MG CAPSULE. PO SCH (10:24)
[2016-10-01] MEDS: PROPRANOLOL 20 MG TABLET. PO SCH (10:24)
[2016-10-01] MEDS: METOCLOPRAMIDE 10 MG TABLET PO SCH ×2 (10:26→12:55)
[2016-10-01] MEDS: oxyCODONE ER 20 MG TAB.ER.12H PO SCH (10:26)
[2016-10-01] MEDS: CYPROHEPTADINE 4 MG TABLET. PO SCH (10:33)
--- NOTE | 2016-10-01 12:07 | PDOC3 ---
Discharge Summary Visit Information Date of Admission: Sep 28, 2016 Date of Discharge: Oct 01, 2016 Final Diagnosis Problems Medical Problems: (1) Nausea and vomiting Status: Acute 1. Acute gastroenteritis. 2. Persistent nausea with dry heaves. 3. Loose stools, improving. 4. Elevated blood pressure. 5. Pain management. 6. Hypokalemia. Problems: Brief Hospital Course Allergies Allergies Coded Allergies Type Severity Reaction Last Updated Verified hydrocodone Allergy Intermediate 09/29/16 Yes ibuprofen Allergy Intermediate 09/29/16 Yes iron Allergy Intermediate 09/29/16 Yes latex Allergy Intermediate 09/29/16 Yes Vital Signs Vital Signs Date Time Temp Pulse Resp B/P (MAP) Pulse Ox O2 Delivery O2 Flow Rate FiO2 10/01/16 10:26 20 100 Room Air 10/01/16 10:24 68 136/88 10/01/16 10:22 98.7 Lab Results Laboratory Tests Test 09/30/16 07:43 10/01/16 06:32 White Blood Count 7.7 x10^3/uL (4.0-11.0) 6.9 x10^3/uL (4.0-11.0) Red Blood Count 4.05 x10^6/uL (3.50-5.40) 3.88 x10^6/uL (3.50-5.40) Hemoglobin 11.4 g/dL (12.0-15.5) 10.8 g/dL (12.0-15.5) Hematocrit 33.6 % (36.0-47.0) 32.4 % (36.0-47.0) Mean Corpuscular Volume 83 fL (79-100) 84 fL (79-100) Mean Corpuscular Hemoglobin 28 pg (25-35) 28 pg (25-35) Mean Corpuscular Hemoglobin Concent 34 g/dL (31-37) 33 g/dL (31-37) Red Cell Distribution Width 14.1 % (11.5-14.5) 14.4 % (11.5-14.5) Platelet Count 208 x10^3/uL (140-400) 169 x10^3/uL (140-400) Neutrophils (%) (Auto) 61 % (31-73) 57 % (31-73) Lymphocytes (%) (Auto) 30 % (24-48) 31 % (24-48) Monocytes (%) (Auto) 7 % (0-9) 8 % (0-9) Eosinophils (%) (Auto) 1 % (0-3) 4 % (0-3) Basophils (%) (Auto) 1 % (0-3) 1 % (0-3) Neutrophils # (Auto) 4.6 x10^3uL (1.8-7.7) 3.9 x10^3uL (1.8-7.7) Lymphocytes # (Auto) 2.3 x10^3/uL (1.0-4.8) 2.1 x10^3/uL (1.0-4.8) Monocytes # (Auto) 0.6 x10^3/uL (0.0-1.1) 0.5 x10^3/uL (0.0-1.1) Eosinophils # (Auto) 0.1 x10^3/uL (0.0-0.7) 0.3 x10^3/uL (0.0-0.7) Basophils # (Auto) 0.1 x10^3/uL (0.0-0.2) 0.0 x10^3/uL (0.0-0.2) Sodium Level 143 mmol/L (136-145) 143 mmol/L (136-145) Potassium Level 3.1 mmol/L (3.5-5.1) 3.5 mmol/L (3.5-5.1) Chloride Level 108 mmol/L (98-107) 109 mmol/L (98-107) Carbon Dioxide Level 24 mmol/L (21-32) 27 mmol/L (21-32) Anion Gap 11 (6-14) 7 (6-14) Blood Urea Nitrogen 6 mg/dL (7-20) 6 mg/dL (7-20) Creatinine 0.8 mg/dL (0.6-1.0) 0.9 mg/dL (0.6-1.0) Estimated GFR (Cockcroft-Gault) 81.2 70.8 Glucose Level 88 mg/dL (70-99) 88 mg/dL (70-99) Calcium Level 9.0 mg/dL (8.5-10.1) 8.6 mg/dL (8.5-10.1) BUN/Creatinine Ratio 7 (6-20) Magnesium Level 1.9 mg/dL (1.8-2.4) Total Bilirubin 0.4 mg/dL (0.2-1.0) Aspartate Amino Transf (AST/SGOT) 20 U/L (15-37) Alanine Aminotransferase (ALT/SGPT) 31 U/L (14-59) Alkaline Phosphatase 89 U/L (46-116) Total Protein 6.9 g/dL (6.4-8.2) Albumin 3.3 g/dL (3.4-5.0) Albumin/Globulin Ratio 0.9 (1.0-1.7) Brief Hospital Course Ms. Pop is a 36 old FEMALE WHO PRESENTED WITH ACUTE GASTROENTERITIS WITH SEVERE NAUSEA AND DRY HEAVES. SHE WAS UNABLE TO KEEP ANYTHING DOWN FOR 2 DAYS SHE REMAINED IN THE HOSPITAL ON IV FLUIDS. SHE HAD A UGI WHICH SHOWED ONLY SOME GERD. SHE GRADUALLY WITH THE HELP OF ANTIEMETICS AND IV FLUIDS BEGAN TO TAKE PO ON THE AFTERNOON OF 09/30. SHE FELT WELL ENOUGH TO BE DISCHARGED. AND FELT MUCH IMPROVED ON 10/01. Discharge Information Condition at Discharge: Improved Disposition/Orders: D/C to Home Dischare Medications Current Medications Metoclopramide HCl (Reglan) 10 mg 1X ONCE IV Last administered on 09/28/16 05: 00; Start 09/28/16 at 05:00; Stop 09/28/16 at 05:01; Status DC Sodium Chloride 1,000 ml @ 1,000 mls/hr 1X ONCE IV Last administered on 05:00; Start 09/28/16 at 05:00; Stop 09/28/16 at 05:59; Status DC Iohexol (Omnipaque 300 Mg/ml) 75 ml 1X ONCE IV Last administered on 09/28/16 05:35; Start 09/28/16 at 05:00; Stop 09/28/16 at 05:01; Status DC Info (Do NOT chart on this entry -- for MONITORING) 1 each PRN DAILY PRN MC SEE COMMENTS; Start 09/28/16 at 05:00; Stop 09/30/16 at 04:59; Status DC Promethazine HCl (Phenergan Im) 25 mg 1X ONCE IM Last administered on 06:53; Start 09/28/16 at 07:00; Stop 09/28/16 at 07:02; Status DC Ondansetron HCl (Zofran) 4 mg PRN Q4HRS PRN IV NAUSEA/VOMITING Last administered on 09/29/16 07:24; Start 09/28/16 at 08:30; Stop 09/29/16 at 08:29; Status DC Fentanyl Citrate (Fentanyl 2ml Vial) 50 mcg PRN Q2HR PRN IV PAIN Last administered on 09/29/16 07:24; Start 09/28/16 at 08:30; Stop 09/29/16 at 08:29; Status DC Sodium Chloride 1,000 ml @ 125 mls/hr Q8H IV Last administered on 09/28/16 22: 23; Start 09/28/16 at 08:18; Stop 09/29/16 at 08:17; Status DC Labetalol HCl (Normodyne) 20 mg PRN Q2HR PRN IVP HYPERTENSION, SEE COMMENTS Last administered on 09/28/16 08:25; Start 09/28/16 at 08:30; Stop 09/30/16 at 12: 51; Status DC Enoxaparin Sodium (Lovenox) 40 mg Q24H SQ Last administered on 09/30/16 13:35; Start 09/28/16 at 13:20 Promethazine HCl 25 mg/Sodium Chloride 51 ml @ 102 mls/hr PRN Q6HRS PRN IV NAUSEA/VOMITING Last administered on 09/30/16 01:42; Start 09/28/16 at 16:30 Promethazine HCl (Phenergan) 25 mg STK-MED ONCE IV ; Start 09/29/16 at 04:35; Stop 09/29/16 at 04:36; Status DC Sodium Chloride 50 ml @ As Directed STK-MED ONCE .ROUTE ; Start 09/29/16 at 04:35 ; Stop 09/29/16 at 04:36; Status DC Pyridoxine HCl (Vitamin B6) 100 mg 1X ONCE IV Last administered on 09/29/16 09 :33; Start 09/29/16 at 09:30; Stop 09/29/16 at 09:31; Status DC Famotidine (Pepcid) 20 mg BID IVP Last administered on 10/01/16 10:22; Start at 09:30 Metoclopramide HCl (Reglan) 5 mg 1X ONCE IV Last administered on 09/29/16 09: 33; Start 09/29/16 at 09:30; Stop 09/29/16 at 09:31; Status DC Multivitamins/ Minerals 10 ml/ Folic Acid 1 mg/ Thiamine HCl 100 mg/Potassium Chloride 40 meq/ Dextrose/Lactated Ringer's 1,031.2 ml @ 125 mls/ hr 1X ONCE IV Last administered on 09/29/16 09:56; Start 09/29/16 at 10:00; Stop 09/29/16 at 18:15; Status DC Diphenhydramine HCl (Benadryl) 25 mg 1X ONCE IVP Last administered on 09:56; Start 09/29/16 at 10:00; Stop 09/29/16 at 10:01; Status DC Diphenhydramine HCl (Benadryl) 25 mg PRN Q6HRS PRN IVP ITCHING Last administered on 09/30/16 10:18; Start 09/29/16 at 09:30 Metoclopramide HCl (Reglan) 10 mg QID IV Last administered on 09/30/16 08:17; Start 09/29/16 at 10:00; Stop 09/30/16 at 12:51; Status DC Ketorolac Tromethamine (Toradol) 30 mg 1X ONCE IV Last administered on 13:27; Start 09/29/16 at 13:10; Stop 09/29/16 at 13:11; Status DC Dicyclomine HCl (Bentyl) 10 mg 1X ONCE IM Last administered on 09/29/16 13:27 ; Start 09/29/16 at 13:10; Stop 09/29/16 at 13:11; Status DC Fentanyl Citrate (Fentanyl 2ml Vial) 25 mcg PRN Q2HR PRN IV PAIN Last administered on 09/29/16 19:27; Start 09/29/16 at 12:45 Ketorolac Tromethamine (Toradol) 30 mg PRN Q6HRS PRN IV PAIN Last administered on 10/01/16 02:01; Start 09/29/16 at 13:10; Stop 10/04/16 at 13:09 Sodium Chloride 100 ml @ As Directed STK-MED ONCE .ROUTE Last administered on 09/30/16 01:41; Start 09/30/16 at 01:40; Stop 09/30/16 at 01:41; Status DC Potassium Chloride (Klor-Con) 40 meq 1X ONCE PO Last administered on 09/30/16 10:18; Start 09/30/16 at 10:20; Stop 09/30/16 at 10:21; Status DC Cyproheptadine HCl (Periactin) 4 mg BID PO Last administered on 10/01/16 10:33 ; Start 09/30/16 at 21:00 Diclofenac Epolamine (Flector) 1 patch QHS TD ; Start 09/30/16 at 21:00 Diphenhydramine HCl (Benadryl) 25 mg PRN DAILY PRN PO MIGHA; Start 09/30/16 at 12:45 Gabapentin (Neurontin) 300 mg TID PO Last administered on 10/01/16 10:24; Start 09/30/16 at 14:00 Lorazepam (Ativan) 0.5 mg BID PO Last administered on 10/01/16 10:22; Start 09/30/16 at 21:00 Oxycodone HCl (OxyCONTIN) 20 mg BID PO Last administered on 10/01/16 10:26; Start 09/30/16 at 13:00 Prazosin HCl (Minipress) 1 mg QHS PO Last administered on 09/30/16 20:15; Start 09/30/16 at 21:00 Promethazine HCl (Phenergan) 25 mg PRN DAILY PRN PO MIGHA; Start 09/30/16 at 12: 45 Promethazine HCl (Phenergan) 25 mg TIDAC PO Last administered on 10/01/16 10:22 ; Start 09/30/16 at 16:30 Rivaroxaban (Xarelto) 10 mg DAILY PO ; Start 10/01/16 at 09:00; Stop 10/01/16 at 09:00; Status DC Sertraline HCl (Zoloft) 75 mg HS PO Last administered on 09/30/16 20:14; Start 09/30/16 at 21:00 Acetaminophen/ Aspirin/Caffeine (Excedrin Migraine) 1 tab PRN DAILY PRN PO MIGRAINE HEADACHE; Start 09/30/16 at 13:15 Ondansetron HCl (Zofran Odt) 8 mg PRN Q8HRS PRN PO NAUSEA/VOMITING Last administered on 09/30/16 13:35; Start 09/30/16 at 13:00 Propranolol HCl (Inderal) 40 mg BID PO Last administered on 10/01/16 10:24; Start 09/30/16 at 13:00 Famotidine (Pepcid) 20 mg PRN DAILY PRN PO REFLUX Last administered on 10:52; Start 09/30/16 at 21:00 Metoclopramide HCl (Reglan) 10 mg QID PO Last administered on 10/01/16 10:26; Start 09/30/16 at 13:00 Active Scripts Active Reported Xarelto (Rivaroxaban) 10 Mg Tablet 10 Mg PO DAILY NEXT DOSE DUE: DATE: 10/02 TIME: Daily Zantac (Ranitidine Hcl) 150 Mg Tablet 150 Mg PO PRN DAILY PRN PRN Medication--take as needed Zoloft (Sertraline Hcl) 50 Mg Tablet 1.5 Tab PO HS LAST DOSE GIVEN: DATE: 09/30 TIME: Bedtime NEXT DOSE DUE: DATE: 10/01 TIME: Bedtime Zofran Odt (Ondansetron) 8 Mg Tab.rapdis 1 Tab PO Q8HRS LAST DOSE GIVEN: DATE: 09/30 TIME: 1:30 PM NEXT DOSE DUE: Can be taken every 8 hours; as needed Prazosin Hcl 1 Mg Capsule 1 Cap PO QHS LAST DOSE GIVEN: DATE: 09/30 TIME: Bedtime NEXT DOSE DUE: DATE: 10/01 TIME: Bedtime Oxycontin (Oxycodone HCl) 20 Mg Tab.er.12h 20 Mg PO BID LAST DOSE GIVEN: DATE: 10/01 TIME: AM NEXT DOSE DUE: DATE: 10/01 TIME: PM Lorazepam 0.5 Mg Tablet 1 Tab PO BID LAST DOSE GIVEN: DATE: 10/01 TIME: AM NEXT DOSE DUE: DATE: 10/01 TIME: PM Cyproheptadine Hcl 4 Mg Tablet 1 Tab PO BID LAST DOSE GIVEN: DATE: 10/01 TIME: AM NEXT DOSE DUE: DATE: 10/01 TIME: PM Propranolol Hcl 40 Mg Tablet 1 Tab PO BID LAST DOSE GIVEN: DATE: 10/01 TIME: AM NEXT DOSE DUE: DATE: 10/01 TIME: PM Excedrin Tension Headache Cplt (Acetaminophen/Caffeine) 1 Each Tablet 1 Each PO DAILY PRN PRN Medication--take as needed Promethazine Hcl 25 Mg Tablet 25 Mg PO DAILY PRN PRN Medication--take daily as needed Benadryl (Diphenhydramine Hcl) 25 Mg Capsule 25 Mg PO DAILY PRN PRN Medication--take as needed Multivitamins (Multivitamin) 1 Each Tablet 1 Each PO DAILY Take vitamin daily Flector (Diclofenac Epolamine) 1 Each Patch.td12 1 Each TD QHS LAST DOSE GIVEN: Not administered this admission NEXT DOSE DUE: DATE: 10/01 TIME: Bedtime Gabapentin 300 Mg Capsule 300 Mg PO TID LAST DOSE GIVEN: DATE: 10/01 TIME: AM NEXT DOSE DUE: : 10/01 TIME: 2 PM Promethazine Hcl 25 Mg Tablet 25 Mg PO TIDAC LAST DOSE GIVEN: DATE: 10/01 TIME: 11:30 AM NEXT DOSE DUE: DATE: 10/01 TIME: 4:30 PM Patient Instructions Patient Instuctions BLAND DIET, FLUIDS. CONTINUE HOME MEDS. NO NEW MEDS WERE ADDED. ZURI MEDINA DO Oct 01, 2016 12:06
[2016-10-01] MEDS: ENOXAPARIN 40 MG/0.4 ML DISP.SYRIN. SQ SCH (12:57)
== END 2016-10-01 13:15 | disposition home or self-care (01) | DRG 392 ==
LOC: ER 04:17 → 1 SOUTH 08:24 → ICU 09-29 05:35 → 1 SOUTH 09-30 23:55
PROVIDERS: ADMIT Internal Medicine; ATTEND Internal Medicine
DX: A08.4 Viral intestinal infection, unspecified (principal); G40.909 Epilepsy, unspecified, not intractable, without status epilepticus; I10 Essential (primary) hypertension; E87.6 Hypokalemia; M79.7 Fibromyalgia; M41.9 Scoliosis, unspecified; K21.9 Gastro-esophageal reflux disease without esophagitis; G43.909 Migraine, unspecified, not intractable, without status migrainosus; G47.00 Insomnia, unspecified; M19.90 Unspecified osteoarthritis, unspecified site; Z79.899 Other long term (current) drug therapy; Z90.710 Acquired absence of both cervix and uterus; Z79.01 Long term (current) use of anticoagulants; Z88.8 Allergy status to other drugs, medicaments and biological substances; Z88.6 Allergy status to analgesic agent; Z91.040 Latex allergy status
CPT/HCPCS: 36415; 74177; 74249; 80048; 80053; 81001; 82947; 83690; 83735; 85007; 85027; 87086; 87641; 96372; 96374; 96375; J0500; J1200; J1650; J1885; J2405; J2550; J2765; J3010; J3415; J3490; J8597; Q0162; Q0169; Q9967; S0028; 97110; 97116; 97530; 99285-25; J7030

== ENCOUNTER 2021-06-27 16:01 | Emergency (ER) | payer OTHER ==
[~2021-06-27] VITALS: Ht 157.5 cm; Wt 125.2 kg
[~2021-06-27 16:01] MED LIST changes: -CYCL-331 PO; +CYCL10TA19 PO; +CYPR4TAB31 PO; -DICL1PAT14 TD; +DICL1PAT35 TD; -FERR-26 PO; +FERR325T14 PO; -MAGN400T3 PO; +MAGN400T48 PO; +MULT-445 PO; -MULT1TAB52 PO; +NAPR-514 PO; -NAPR500T3 PO; +ONDA8TAB12 PO; +OXYC20TA35 PO; +PRAZ1CAP2 PO; +PROP60CA36 PO; -PROP60CA8 PO; +RANI-376 PO; +RIVA10TA PO; +SERT50TA PO
--- NOTE | 2021-06-27 17:39 | PHYS DOC ---
Past History Past Medical History: Anxiety, Depression, Migraines, Seizure, Other Additional Past Medical Histor: MS; end stage gastroparesis Past Surgical History: Hysterectomy, Oophorectomy, Other Additional Past Surgical Histo: abd lap x 3, right knee x 4; partha in right leg; pins in ankle Alcohol Use: None Drug Use: None General Adult EDM: Chief Complaint: COUGH HPI: HPI: Patient is a 40 year old female with past medical history that includes multiple sclerosis who presents with concern regarding chest x-ray taken earlier today. Patient states that she was having a presurgical work-up done at for a spine surgery, part of which included a chest x-ray. On her way home, she received a voicemail from the office stating that she had pneumonia and that she should go to the ER. The voicemail stated that the provider thought that she was "too sick for outpatient work-up," and that she should present to the emergency room. Patient states that her health has taken a significant decline over the past year related to her multiple sclerosis. Patient reports chest heaviness for the past 2-3 months and shortness of breath. She states she has associated cough and chest pressure, but has not had any sputum production, fevers, chills. She has no other complaints at this time. Patient reports having had multiple surgeries on her back, lower extremities and abdomen. The most recent of the surgeries was within the abdomen in the summer of last year, but she is unsure of the exact date. Review of Systems: Review of Systems: Constitutional: See HPI Eyes: Denies change in visual acuity, visual field deficits or discharge HENT: Denies ear pain, nasal congestion or sore throat Respiratory: See HPI Cardiovascular: See HPI GI: Denies abdominal pain, nausea, vomiting, bloody stools or diarrhea : Denies dysuria or hematuria Musculoskeletal: Denies back pain or joint pain Integument: Denies rash or other skin lesion Neurologic: Denies headache, focal weakness or sensory changes Allergies: Allergies: Allergies Coded Allergies Type Severity Reaction Last Updated Verified hydrocodone Allergy Intermediate 06/27/21 Yes ibuprofen Allergy Intermediate 06/27/21 Yes iron Allergy Intermediate 06/27/21 Yes latex Allergy Intermediate 06/27/21 Yes amoxicillin Allergy Unknown 06/27/21 Yes carboxymethylcellulose sodium Allergy Unknown 06/27/21 Yes cyclosporine Allergy Unknown 06/27/21 Yes magnesium Allergy Unknown 06/27/21 Yes metoclopramide Allergy Unknown 06/27/21 Yes scopolamine Allergy Unknown 06/27/21 Yes topiramate Allergy Unknown 06/27/21 Yes zinc Allergy Unknown 06/27/21 Yes Uncoded Allergies Type Severity Reaction Last Updated Verified DOVE SOAP Allergy Unknown 06/27/21 Physical Exam: PE: Constitutional: Obese, no acute distress, chronically ill-appearing. HENT: Normocephalic, atraumatic, bilateral external ears normal, nose normal. Eyes: EOMI, no discharge. Neck: Normal range of motion, no stridor. Cardiovascular: Regular rate and rhythm. Pulmonary: Equal thoracic expansion, no retractions or accessory muscle use. Skin: Pallor appreciated, warm, dry, no erythema, no rash. Extremities: No cyanosis, no clubbing, ROM intact. Neurologic: Alert and oriented x4, normal motor function, normal sensory function, no focal deficits noted. Current Patient Data: Labs: Pending Vital Signs: Vital Signs Date Time Temp Pulse Resp B/P (MAP) Pulse Ox O2 Delivery O2 Flow Rate FiO2 06/27/21 16:21 99.2 83 24 118/66 (83) 95 Room Air EKG: EKG: EKG Interpreted by Dr. Shelton at 1717: Regular rate and rhythm 79 bpm with no ectopic beats. T wave inversions V1 through V5. QT 370 ms/QTc 425 ms. No STEMI. Radiology/Procedures: Radiology/Procedures: Pending Heart Score: C/O Chest Pain: Yes HEART Score for Chest Pain: HEART Score for Chest Pain Response (Comments) Value History Slighlty/Non-Suspicious 0 ECG Nonspecific Repolarizatio 1 Age < 45 0 Risk Factors 1 or 2 Risk Factors 1 Troponin < Normal Limit 0 Total 2 Risk Factors: Risk Factors: obesity Risk Scores: Score 0 - 3: 2.5% MACE over next 6 weeks - Discharge Home Score 4 - 6: 20.3% MACE over next 6 weeks - Admit for Clinical Observation Score 7 - 10: 72.7% MACE over next 6 weeks - Early Invasive Strategies Course & Med Decision Making: Course & Med Decision Making Pertinent Labs and Imaging studies reviewed. (See chart for details) Patient is a 40-year-old female who has had a significant decline in overall hea lth in the past year secondary to multiple sclerosis. In her presurgical work- up for a back surgery today at , it was found that she may have pneumonia requiring inpatient treatment, per office staff at . Work-up today will consist of labs that include blood cultures, lactic acid and D-dimer as well as chest x-ray. Patient is a difficult stick. While awaiting lab draw, patient care was transferred to Dr. Galeana at shift change with thorough handoff. Dragon Disclaimer: [place] Disclaimer: This electronic medical record was generated, in whole or in part, using a voice recognition dictation system. Departure Departure: Referrals: SYEDA RODAS (PCP) PIPER CONNOLLY June 27, 2021 17:39
[2021-06-27 18:34] LABS: BASO # 0.1 x10^3/uL (0.0-0.2); BASO % 1 % (0-3); EOS # 0.1 x10^3/uL (0.0-0.7); EOS % 0 % (0-3); HEMOGLOBIN 11.4 g/dL (12.0-15.5); LYMPH # 0.9 x10^3/uL (1.0-4.8); LYMPH % 6 % (24-48); MEAN CORPUSCULAR HEMOGLOBIN 27 pg (25-35); MEAN CORPUSCULAR HGB CONC 33 g/dL (31-37); MEAN CORPUSCULAR VOLUME 82 fL (79-100); MONO # 0.8 x10^3/uL (0.0-1.1); MONO % 5 % (0-9); NEUT # 14.8 x10^3uL (1.8-7.7); NEUT % 89 % (31-73); PLATELET COUNT 198 x10^3/uL (140-400); RED BLOOD COUNT 4.28 x10^6/uL (3.50-5.40); RED CELL DISTRIBUTION WIDTH 15.4 % (11.5-14.5); WHITE BLOOD COUNT 16.7 x10^3/uL (4.0-11.0)
[2021-06-27 18:42] LABS: CALCIUM 8.6 mg/dL (8.5-10.1); CREATININE 0.9 mg/dL (0.6-1.0); GFR 69.3; POTASSIUM 4.6 mmol/L (3.5-5.1)
--- NOTE | 2021-06-27 18:43 | RAD ---
Two-view chest dated 06/27/2021 6:40 PM Comparison: 01/23/2015 CLINICAL INDICATION: History of pneumonia FINDINGS: PA and lateral views obtained. Heart and mediastinal contours are stable. There is patchy increased d ensity at the retrocardiac left base. Right lung is clear. No pneumothorax or significant pleural eff usion. IMPRESSION: 1. Patchy left basilar airspace disease, atelectasis versus pneumonia. Electronically signed by: Ranjith Hubbard MD (06/27/2021 6:41 PM) [facility]
--- NOTE | 2021-06-27 18:47 | PHYS DOC ---
Past History Past Medical History: Anxiety, Depression, Migraines, Seizure, Other Additional Past Medical Histor: MS; end stage gastroparesis Past Surgical History: Hysterectomy, Oophorectomy, Other Additional Past Surgical Histo: abd lap x 3, right knee x 4; partha in right leg; pins in ankle Alcohol Use: None Drug Use: None General Adult EDM: Chief Complaint: COUGH HPI: HPI: Patient is a 40-year-old female that was initially seen by the PA. Please see her note for details. I assumed care at 1800. Imaging studies, laboratory exams are pending at that time. I personally viewed the patient's imaging studies, labs and EKG. Patient has reportedly had intermittent chest pressure and chest pain for over a month. She has been coughing for many weeks. She denies purulent sputum or hemoptysis. Denies fevers or chills. She was seen at for outpatient, routine preoperative studies, was told that she had an abnormal chest x-ray and was told to go to the closest emergency department. Chest x-ray shows a left lower lobe pneumonia. Review of Systems: Review of Systems: See PA note for review of systems, as above Allergies: Allergies: Allergies Coded Allergies Type Severity Reaction Last Updated Verified hydrocodone Allergy Intermediate 06/27/21 Yes ibuprofen Allergy Intermediate 06/27/21 Yes iron Allergy Intermediate 06/27/21 Yes latex Allergy Intermediate 06/27/21 Yes amoxicillin Allergy Unknown 06/27/21 Yes carboxymethylcellulose sodium Allergy Unknown 06/27/21 Yes cyclosporine Allergy Unknown 06/27/21 Yes magnesium Allergy Unknown 06/27/21 Yes metoclopramide Allergy Unknown 06/27/21 Yes scopolamine Allergy Unknown 06/27/21 Yes topiramate Allergy Unknown 06/27/21 Yes zinc Allergy Unknown 06/27/21 Yes Uncoded Allergies Type Severity Reaction Last Updated Verified DOVE SOAP Allergy Unknown 06/27/21 Physical Exam: PE: Constitutional: Well developed, well nourished, no acute distress, non-toxic appearance. [] HENT: Normocephalic, atraumatic Neck: Trachea midline, no JVD Cardiovascular: Well-perfused appearing Lungs & Thorax: No respiratory distress Extremities: No limb deformity. No calf tenderness Neurologic: Alert and oriented X 3, all 4 extremities equally, speech is fluent, no facial asymmetry Psychologic: Affect normal, judgement normal, mood normal. [] Current Patient Data: Labs: Laboratory Tests Test 06/27/21 17:55 White Blood Count 16.7 x10^3/uL (4.0-11.0) H Red Blood Count 4.28 x10^6/uL (3.50-5.40) Hemoglobin 11.4 g/dL (12.0-15.5) L Hematocrit 35.0 % (36.0-47.0) L Mean Corpuscular Volume 82 fL (79-100) Mean Corpuscular Hemoglobin 27 pg (25-35) Mean Corpuscular Hemoglobin Concent 33 g/dL (31-37) Red Cell Distribution Width 15.4 % (11.5-14.5) H Platelet Count 198 x10^3/uL (140-400) Neutrophils (%) (Auto) 89 % (31-73) H Lymphocytes (%) (Auto) 6 % (24-48) L Monocytes (%) (Auto) 5 % (0-9) Eosinophils (%) (Auto) 0 % (0-3) Basophils (%) (Auto) 1 % (0-3) Neutrophils # (Auto) 14.8 x10^3uL (1.8-7.7) H Lymphocytes # (Auto) 0.9 x10^3/uL (1.0-4.8) L Monocytes # (Auto) 0.8 x10^3/uL (0.0-1.1) Eosinophils # (Auto) 0.1 x10^3/uL (0.0-0.7) Basophils # (Auto) 0.1 x10^3/uL (0.0-0.2) Platelet Estimate Pending Sodium Level 139 mmol/L (136-145) Potassium Level 4.6 mmol/L (3.5-5.1) Chloride Level 101 mmol/L (98-107) Carbon Dioxide Level 29 mmol/L (21-32) Anion Gap 9 (6-14) Blood Urea Nitrogen 11 mg/dL (7-20) Creatinine 0.9 mg/dL (0.6-1.0) Estimated GFR (Cockcroft-Gault) 69.3 BUN/Creatinine Ratio 12 (6-20) Glucose Level 94 mg/dL (70-99) Calcium Level 8.6 mg/dL (8.5-10.1) Total Bilirubin Pending Aspartate Amino Transferase (AST) Pending Alanine Aminotransferase (ALT) Pending Alkaline Phosphatase Pending RH-Deg-J-Type Natriuretic Peptide Pending Total Protein Pending Albumin Pending Albumin/Globulin Ratio Pending Vital Signs: Vital Signs Date Time Temp Pulse Resp B/P (MAP) Pulse Ox O2 Delivery O2 Flow Rate FiO2 06/27/21 17:43 69 24 114/72 (86) 93 Room Air 06/27/21 16:21 99.2 EKG: EKG: EKG is interpreted at 1717 Rhythm is sinus Rate is 79 bpm [place] is left No STEMI T wave inversion leas III, V1, V2, V3, V4, V5, flat in lead V6 and aVF Radiology/Procedures: Radiology/Procedures: IMAGING REPORT Signed PATIENT: SHITAL WASHBURN ACCOUNT: [id number] : 1980 LOCATION: ER AGE: 40 SEX: F EXAM STATUS: REG ER ORD. PHYSICIAN: PIPER CONNOLLY REASON: pna seen on xray at PROCEDURE: CHEST PA & LATERAL Two-view chest dated 06/27/2021 6:40 PM Comparison: 01/23/2015 CLINICAL INDICATION: History of pneumonia FINDINGS: PA and lateral views obtained. Heart and mediastinal contours are stable. There is patchy increased density at the retrocardiac left base. Right lung is clear. No pneumothorax or significant pleural effusion. IMPRESSION: 1. Patchy left basilar airspace disease, atelectasis versus pneumonia. Electronically signed by: Ranjith Hubbard MD (06/27/2021 6:41 PM) [facility] DICTATED AND SIGNED BY: RANJITH HUBBARD MD DATE: 06/27/21 958 CC: GASTON MAURICE DO; PIPER CONNOLLY; SYEDA RODAS ~ Heart Score: C/O Chest Pain: Yes HEART Score for Chest Pain: HEART Score for Chest Pain Response (Comments) Value History Slighlty/Non-Suspicious 0 ECG Nonspecific Repolarizatio 1 Age < 45 0 Risk Factors 1 or 2 Risk Factors 1 Troponin < Normal Limit 0 Total 2 Risk Factors: Risk Factors: DM, Current or recent (<one month) smoker, HTN, HLP, family history of CAD, obesity. Risk Scores: Score 0 - 3: 2.5% MACE over next 6 weeks - Discharge Home Score 4 - 6: 20.3% MACE over next 6 weeks - Admit for Clinical Observation Score 7 - 10: 72.7% MACE over next 6 weeks - Early Invasive Strategies Course & Med Decision Making: Course & Med Decision Making Pertinent Labs and Imaging studies reviewed. (See chart for details) The patient is given a dose of oral doxycycline here. She will be treated as an outpatient for community-acquired pneumonia. The remainder of Emergency Department work-up is unremarkable for any acute life-threatening process. I discussed the findings, differential diagnosis and plan of care with her. I recommended that she contact her PCP for follow-up. Return precautions given. She verbalizes understanding. Joe Disclaimer: Joe Disclaimer: This electronic medical record was generated, in whole or in part, using a voice recognition dictation system. Departure Departure: Impression: Primary Impression: Community acquired pneumonia Qualified Codes: J18.9 - Pneumonia, unspecified organism Disposition: HOME / SELF CARE / HOMELESS Condition: STABLE Referrals: SYEDA RODAS (PCP) Patient Instructions: Pneumonia, Adult Additional Instructions: Take the full course of antibiotics until gone. Please contact your primary care doctor tomorrow to discuss the findings. The remainder of your work-up here in the ER is unremarkable. There is no evidence of heart failure, no evidence of a blood clot in your lung, no evidence of heart damage. Return to the ER for more severe pain, shortness of breath, uncontrolled vomiting, dehydration, weakness, if you are acutely injured or any other concerns. Scripts Doxycycline Hyclate (DOXYCYCLINE HYCLATE) 100 Mg Tablet. 1 TAB PO BID for cap for 10 Days, #20 TAB Prov: GASTON MAURICE DO 06/27/21 GASTON MAURICE DO June 27, 2021 18:47
[2021-06-27 18:52] LABS: ALBUMIN 3.6 g/dL (3.4-5.0); ALBUMIN/GLOBULIN RATIO 0.9 (1.0-1.7); TOTAL BILIRUBIN 0.4 mg/dL (0.2-1.0); TOTAL PROTEIN 7.4 g/dL (6.4-8.2)
[2021-06-27] MEDS ORDERED: DOXYCYCLINE HYCLATE 100 MG TABLET PO ONE (19:15)
[2021-06-27 20:25] LABS: % BANDS 1 % (0-9); % LYMPHS 6 % (24-48); % MONOS 3 % (0-10); % SEGS 90 % (35-66)
[2021-06-27 20:26] LABS: ANISOCYTOSIS SLIGHT; PLT ESTIMATE ADEQUATE (ADEQUATE)
[2021-06-27] MEDS ORDERED: DOXY-96 PO (20:30)
[2021-06-27 20:35] VITALS: BP 132/57
--- NOTE | 2021-06-27 20:51 | EKG ---
[address] [address] Test Date: 2021-06-27 Test Time: 17:14:38 Pat Name: SHITAL WASHBURN Department: Room: Gender: F [employer]: : 1980 Requested By: PIPER CONNOLLY Order Number: [id number] Reading MD: Eze Dunn MD Measurements Intervals [place] Rate: 79 P: 36 IA: 172 QRS: -7 QRSD: 88 T: 14 QT: 370 QTc: 425 Interpretive Statements SINUS RHYTHM Electronically Signed On 07-01-2021 9:04:09 CDT by Eze Dunn MD
== END 2021-06-27 20:35 | disposition home or self-care (01) ==
LOC: ER 16:01
DX: J18.9 Pneumonia, unspecified organism (principal); F41.9 Anxiety disorder, unspecified; F32.9 Major depressive disorder, single episode, unspecified; G43.909 Migraine, unspecified, not intractable, without status migrainosus; G35 Multiple sclerosis; Z20.822 Contact with and (suspected) exposure to COVID-19; Z88.5 Allergy status to narcotic agent; Z91.040 Latex allergy status; Z88.1 Allergy status to other antibiotic agents; Z88.8 Allergy status to other drugs, medicaments and biological substances
CPT/HCPCS: 36415; 71046; 80053; 83605; 83880; 84484; 85007; 85025; 85379; 87040; 87426; 93005; 99285; C9803; U0003